=== PATIENT | female | born 1965 | race Caucasian/White ===

== ENCOUNTER 2017-03-09 07:01 | Emergency (ER) | payer BC ==
[~2017-03-09] VITALS: Ht 162.6 cm; Wt 58.1 kg
[2017-03-09 07:01] VITALS: BP_SYST 173
[2017-03-09] MEDS ORDERED: PROPOFOL DRIP 100 ML IV ONE (07:15)
[2017-03-09 08:44] VITALS: BP_SYST 131
== END 2017-03-09 08:40 | disposition home or self-care (01) ==
LOC: SED 07:01
DX: S83.095A Other dislocation of left patella, initial encounter (principal); X58.XXXA Exposure to other specified factors, initial encounter; Y93.89 Activity, other specified; Y92.89 Other specified places as the place of occurrence of the external cause; Y99.8 Other external cause status
CPT/HCPCS: 27560; 73560; 99152; 99285; J2704; 96374; 99284